=== PATIENT | female | born 1980 | race Caucasian/White ===

== ENCOUNTER 2016-12-26 08:22 | Inpatient (IN) | payer OTHER ==
[~2016-12-26] VITALS: Ht 160 cm; Wt 123.2 kg
[2016-12-26 10:55] LABS: RED BLOOD COUNT 5.06 M/UL (4.00-5.10); WHITE BLOOD COUNT 7.2 K/UL (4.5-11.0)
[2016-12-26 16:39] LABS: CRYPTOCOCCUS NEOFORMANS/GATTII Not Detected (Negative); CYTOMEGALOVIRUS Not Detected (Negative); ENTEROVIRUS Not Detected (Negative); ESCHERICHIA COLI K1 Not Detected (Negative); HAEMOPHILUS INFLUENZAE Not Detected (Negative); HERPES SIMPLEX VIRUS 1 Not Detected (Negative); HERPES SIMPLEX VIRUS 2 Not Detected (Negative); HUMAN HERPESVIRUS 6 Not Detected (Negative); HUMAN PARECHOVIRUS Not Detected (Negative); LISTERIA MONOCYTOGENES Not Detected (Negative); NEISERRIA MENINGITIDIS Not Detected (Negative); STREPTOCOCCUS AGALACTIAE Not Detected (Negative); STREPTOCOCCUS PNEUMONIAE Not Detected (Negative); VARICELLA ZOSTER VIRUS Not Detected (Negative)
[2016-12-26 17:06] LABS: GLUCOSE,CSF 57 mg/dL (50-80); TOTAL PROTEIN,CSF 41 mg/dL (20-45)
[2016-12-26] MEDS ORDERED: ESCITALOPRAM OX10 MG PO (21:57)
[2016-12-26] MEDS ORDERED: LISINOPRIL-HCT1 EACH PO (21:58)
[2016-12-26] MEDS ORDERED: PREDNISONE 10 M10 MG PO (21:58)
[2016-12-26] MEDS ORDERED: SULFAMETHOXAZO1 EACH PO (21:59)
[2016-12-26] MEDS ORDERED: OMEPRAZOLE20 M1 PO (22:00)
[2016-12-26] MEDS ORDERED: VITAMIN D350000 UNIT PO (22:37)
[2016-12-26] MEDS ORDERED: QUIN B STRONG1 EACH PO (22:39)
[2016-12-27 05:19] LABS: BUN/CREATININE RATIO 20 (0-10)
[2016-12-27 05:52] LABS: HEMOGLOBIN 11.2 gm/dl (12.3-15.3); RED BLOOD COUNT 4.36 M/UL (4.00-5.10)
[2016-12-27 05:53] LABS: WHITE BLOOD COUNT 5.4 K/UL (4.5-11.0)
[2016-12-28 04:13] LABS: HEMOGLOBIN 12.3 gm/dl (12.3-15.3); RED BLOOD COUNT 4.71 M/UL (4.00-5.10); WHITE BLOOD COUNT 5.3 K/UL (4.5-11.0)
[2016-12-28 04:29] LABS: BUN/CREATININE RATIO 17 (0-10)
[2016-12-29 04:36] LABS: HEMOGLOBIN 11.5 gm/dl (12.3-15.3); RED BLOOD COUNT 4.49 M/UL (4.00-5.10)
[2016-12-29 04:37] LABS: WHITE BLOOD COUNT 7.5 K/UL (4.5-11.0)
[2016-12-29 04:50] LABS: BUN/CREATININE RATIO 21 (0-10)
[2016-12-30 05:42] LABS: HEMOGLOBIN 10.9 gm/dl (12.3-15.3); RED BLOOD COUNT 4.24 M/UL (4.00-5.10); WHITE BLOOD COUNT 8.2 K/UL (4.5-11.0)
[2016-12-30 06:12] LABS: BUN/CREATININE RATIO 22 (0-10)
[2016-12-30] MEDS ORDERED: IBUPROFEN400 MG PO (14:58)
== END 2016-12-30 16:32 | disposition home health service (06) | DRG 872 ==
LOC: ER1 08:22 → ZEROF 18:37 → PROG CARE 21:45 → MED SURG 4 12-29 17:40
PROVIDERS: Physician Assistant; ADMIT Family Medicine
PROC: 009U3ZX Drainage of Spinal Canal, Percutaneous Approach, Diagnostic (ICD-10-PCS; principal; 2016-12-26)
PROC: B01B1ZZ Fluoroscopy of Spinal Cord using Low Osmolar Contrast (ICD-10-PCS; 2016-12-26)
DX: A41.9 Sepsis, unspecified organism (principal); E87.2 Acidosis; M31.31 Wegener's granulomatosis with renal involvement; K52.1 Toxic gastroenteritis and colitis; Z68.42 Body mass index [BMI] 45.0-49.9, adult; B34.9 Viral infection, unspecified; B02.9 Zoster without complications; K90.0 Celiac disease; T37.0X5A Adverse effect of sulfonamides, initial encounter; E87.6 Hypokalemia; J32.9 Chronic sinusitis, unspecified; E66.9 Obesity, unspecified; H53.8 Other visual disturbances; F32.9 Major depressive disorder, single episode, unspecified; R42 Dizziness and giddiness; D69.6 Thrombocytopenia, unspecified; T88.59XA Other complications of anesthesia, initial encounter; G44.40 Drug-induced headache, not elsewhere classified, not intractable; Y84.8 Other medical procedures as the cause of abnormal reaction of the patient, or of later complication, without mention of misadventure at the time of the procedure; Y92.230 Patient room in hospital as the place of occurrence of the external cause; Z83.49 Family history of other endocrine, nutritional and metabolic diseases; Z80.3 Family history of malignant neoplasm of breast; Z79.52 Long term (current) use of systemic steroids
CPT/HCPCS: 36415; 70450; 71020; 76705; 80048; 80053; 80074; 80076; 81001; 82436; 82550; 82553; 82570; 82945; 83605; 83690; 83874; 84133; 84157; 84300; 84439; 84443; 84484; 84703; 85025; 85027; 85379; 85610; 85730; 86039; 86140; 86403; 86431; 86606; 86612; 86618; 86635; 86666; 86698; 87040; 87070; 87081; 87086; 87205; 87390; 87483; 89051; 96361; 96365; 96366; 96375; 99285; J0133; J0290; J0692; J0696; J1100; J1644; J2270; J2405; J2550; J3370; J7050; J7070

== ENCOUNTER 2020-10-12 09:09 | Emergency (ER) | payer OTHER ==
[~2020-10-12 09:09] MED LIST: ESCITALOPRAM OX10 MG PO; IBUPROFEN400 MG PO; LISINOPRIL-HCT1 EACH PO; NAPROSYN500 MG PO; OMEPRAZOLE20 M1 PO; PREDNISONE 10 M10 MG PO; QUIN B STRONG1 EACH PO; SULFAMETHOXAZO1 EACH PO; VITAMIN D350000 UNIT PO
[2020-10-12 11:04] LABS: RED BLOOD COUNT 5.24 M/UL (4.00-5.10); WHITE BLOOD COUNT 8.1 K/UL (4.5-11.0)
[2020-10-12 11:52] LABS: BUN/CREATININE RATIO 20 (0-10)
== END 2020-10-12 14:14 | disposition home or self-care (01) ==
LOC: ER1 09:09
PROVIDERS: Physician Assistant
DX: U07.1 COVID-19 (principal); I10 Essential (primary) hypertension
CPT/HCPCS: 71045; 80053; 85025; 99283; M0239